=== PATIENT | female | born 1985 | race African-American/Black ===

== ENCOUNTER 2017-07-18 10:16 | Outpatient (CLI) | payer BC, MEDICAID ==
[2017-07-18 10:58] LABS: APPEARANCE,URINE CLEAR; BILIRUBIN,URINE NEGATIVE (NEGATIVE); COLOR,URINE YELLOW; GLUCOSE, URINE NEGATIVE (NEGATIVE); KETONES,URINE NEGATIVE (NEGATIVE); LEUKOCYTE ESTERASE,URINE NEGATIVE (NEGATIVE); NITRITE,URINE NEGATIVE (NEGATIVE); PROTEIN,URINE NEGATIVE (NEGATIVE); UROBILINOGEN,URINE NEGATIVE mg/dL (<2.0)
[2017-07-18 11:16] LABS: URINE AMPHETAMINES SCREEN NEGATIVE; URINE BARBITURATES SCREEN NEGATIVE; URINE BENZODIAZEPINES SCREEN NEGATIVE; URINE COCAINE SCREEN NEGATIVE; URINE MARIJUANA (THC) SCREEN NEGATIVE; URINE METHADONE SCREEN NEGATIVE; URINE PHENCYCLIDINE SCREEN NEGATIVE
[2017-07-18 11:23] LABS: UR PRO/CREAT RATIO RESULT 0.1 mg/mg (0.0-0.2); URINE CREATININE 92.1 mg/dL (16-327); URINE PROTEIN 10.7 mg/dL (<12)
[2017-07-18 11:46] LABS: ABSOLUTE LYMPHOCYTES (AUTO) 1.4 10^3/uL (0.5-4.7); ABSOLUTE MONOCYTES (AUTO) 0.4 10^3/uL (0.1-1.4); ABSOLUTE NEUT (AUTO) 4.3 10^3/uL (1.7-8.2); BASOPHILS % (AUTO) 0.1 % (0-2); EOSINOPHILS % (AUTO) 0.8 % (0-6); HEMATOCRIT 35.9 % (36.0-47.0); HEMOGLOBIN 12.1 g/dL (12.0-15.5); LYMPHOCYTES % (AUTO) 22.1 % (13-45); MEAN CORPUSCULAR HEMOGLOBIN 26.4 pg (27.0-33.4); MEAN CORPUSCULAR HGB CONC 33.9 g/dL (32.0-36.0); MEAN CORPUSCULAR VOLUME 78 fl (80-97); MONOCYTES % (AUTO) 6.1 % (3-13); PLATELET COUNT 160 10^3/uL (150-450); RED CELL DISTRIBUTION WIDTH 14.2 % (11.5-14.0); SEGMENTED NEUTROPHILS % (AUTO) 70.9 % (42-78); TOTAL CELLS COUNTED % (AUTO) 100 %; WHITE BLOOD COUNT 6.1 10^3/uL (4.0-10.5)
[2017-07-18 12:06] LABS: ALANINE AMINOTRANSFERASE 27 U/L (9-52); ALBUMIN 3.1 g/dL (3.5-5.0); ALKALINE PHOSPHATASE 124 U/L (38-126); ANION GAP 9 (5-19); ASPARTATE AMINO TRANSFERASE 16 U/L (14-36); BILIRUBIN,DIRECT 0.3 mg/dL (0.0-0.4); BILIRUBIN,TOTAL 0.3 mg/dL (0.2-1.3); BLOOD UREA NITROGEN 4 mg/dL (7-20); CALCIUM 9.4 mg/dL (8.4-10.2); CARBON DIOXIDE 21 mmol/L (22-30); CHLORIDE 108 mmol/L (98-107); GLUCOSE 105 mg/dL (75-110); LDH 303 U/L (313-618); SODIUM 137.9 mmol/L (137-145); TOTAL PROTEIN 5.8 g/dL (6.3-8.2); URIC ACID 4.5 mg/dL (2.5-6.2)
--- NOTE | 2017-07-18 12:28 | Non Stress Test Report ---
Non Stress Test Datetime Report Generated by CPN: 07/18/2017 12:28 DEMOGRAPHIC Test Number: 1 EGA NST: 35.0 INDICATION Indication for Study: Ordered by Provider MONITORING Monitor Explained: Monitor Explained; Test Explained; Patient Verbalized Understanding Time on Monitor: 07/18/2017 10:39 Time off Monitor: 07/18/2017 12:23 NST Duration: 104 NST INTERVENTIONS NST Interventions: PO Hydration; Reposition Patient BABY A: [id number] BABY A Movement : Present Contraction Frequency : 0 FHR Baseline : 140 Accelerations : 15X15 Decelerations : None Variability : Moderate 6-25bpm NST Review: Meets Criteria for Reactive NST NST Review and Verified By : JAYY GARRISON RN NST Results: Reactive NST REPORT Report Trigger: Send Report
== END 2017-07-18 12:27 | disposition home or self-care (01) ==
LOC: LC 10:16
PROVIDERS: ATTEND Student in an Organized Health Care Education/Training Program
PROC: 4A1HXCZ Monitoring of Products of Conception, Cardiac Rate, External Approach (ICD-10-PCS; principal; 2017-07-18)
DX: O14.93 Unspecified pre-eclampsia, third trimester (principal); Z3A.35 35 weeks gestation of pregnancy
CPT/HCPCS: 36415; 59025; 80053; 80307; 81001; 82570; 83615; 84156; 84550; 85025

== ENCOUNTER 2017-07-23 19:20 | Outpatient (CLI) | payer BC, MEDICAID ==
[2017-07-23 20:18] LABS: APPEARANCE,URINE CLEAR; BILIRUBIN,URINE NEGATIVE (NEGATIVE); COLOR,URINE YELLOW; GLUCOSE, URINE NEGATIVE (NEGATIVE); KETONES,URINE NEGATIVE (NEGATIVE); LEUKOCYTE ESTERASE,URINE NEGATIVE (NEGATIVE); NITRITE,URINE NEGATIVE (NEGATIVE); PROTEIN,URINE NEGATIVE (NEGATIVE); URINE SPECIFIC GRAVITY 1.012; UROBILINOGEN,URINE NEGATIVE mg/dL (<2.0)
[2017-07-23 20:21] LABS: ABSOLUTE BASOPHILS # (AUTO) 0.1 10^3/uL (0.0-0.2); ABSOLUTE LYMPHOCYTES (AUTO) 2.3 10^3/uL (0.5-4.7); ABSOLUTE MONOCYTES (AUTO) 0.7 10^3/uL (0.1-1.4); ABSOLUTE NEUT (AUTO) 5.8 10^3/uL (1.7-8.2); BASOPHILS % (AUTO) 0.6 % (0-2); EOSINOPHILS % (AUTO) 0.6 % (0-6); HEMATOCRIT 36.5 % (36.0-47.0); HEMOGLOBIN 12.2 g/dL (12.0-15.5); MEAN CORPUSCULAR HGB CONC 33.3 g/dL (32.0-36.0); MEAN CORPUSCULAR VOLUME 78 fl (80-97); MONOCYTES % (AUTO) 7.7 % (3-13); PLATELET COUNT 169 10^3/uL (150-450); RED BLOOD COUNT 4.68 10^6/uL (3.72-5.28); RED CELL DISTRIBUTION WIDTH 14.2 % (11.5-14.0); SEGMENTED NEUTROPHILS % (AUTO) 65.1 % (42-78); TOTAL CELLS COUNTED % (AUTO) 100 %; WHITE BLOOD COUNT 8.9 10^3/uL (4.0-10.5)
[2017-07-23 20:30] LABS: ALANINE AMINOTRANSFERASE 32 U/L (9-52); ALBUMIN 3.5 g/dL (3.5-5.0); ALKALINE PHOSPHATASE 132 U/L (38-126); ANION GAP 8 (5-19); ASPARTATE AMINO TRANSFERASE 19 U/L (14-36); BILIRUBIN,DIRECT 0.3 mg/dL (0.0-0.4); BILIRUBIN,TOTAL 0.3 mg/dL (0.2-1.3); BLOOD UREA NITROGEN 9 mg/dL (7-20); CALCIUM 9.6 mg/dL (8.4-10.2); CARBON DIOXIDE 20 mmol/L (22-30); CHLORIDE 107 mmol/L (98-107); GLUCOSE 67 mg/dL (75-110); LDH 379 U/L (313-618); TOTAL PROTEIN 6.4 g/dL (6.3-8.2); URIC ACID 4.4 mg/dL (2.5-6.2)
[2017-07-23 20:37] LABS: UR PRO/CREAT RATIO RESULT 0.1 mg/mg (0.0-0.2); URINE AMPHETAMINES SCREEN NEGATIVE; URINE BARBITURATES SCREEN NEGATIVE; URINE BENZODIAZEPINES SCREEN NEGATIVE; URINE COCAINE SCREEN NEGATIVE; URINE CREATININE 93.5 mg/dL (16-327); URINE MARIJUANA (THC) SCREEN NEGATIVE; URINE METHADONE SCREEN NEGATIVE; URINE PHENCYCLIDINE SCREEN NEGATIVE; URINE PROTEIN 11.6 mg/dL (<12)
== END 2017-07-23 22:03 | disposition home or self-care (01) ==
LOC: LC 19:20
PROVIDERS: ATTEND Student in an Organized Health Care Education/Training Program
PROC: 4A1HXCZ Monitoring of Products of Conception, Cardiac Rate, External Approach (ICD-10-PCS; principal; 2017-07-23)
DX: O13.3 Gestational [pregnancy-induced] hypertension without significant proteinuria, third trimester (principal); Z3A.35 35 weeks gestation of pregnancy
CPT/HCPCS: 36415; 80053; 80307; 81001; 82570; 83615; 84156; 84550; 85025

== ENCOUNTER 2017-07-25 10:37 | Outpatient (CLI) | payer BC, MEDICAID ==
--- NOTE | 2017-07-25 10:42 | Non Stress Test Report ---
Non Stress Test Datetime Report Generated by CPN: 07/25/2017 10:41 DEMOGRAPHIC Test Number: 2 EGA NST: 35.5 INDICATION Indication for Study: Ordered by Provider; Other Indication for Study (NST) Other: LC URINE RESULTS Urine Protein, NST: Negative Urine Ketones - NST: Negative Urine Glucose - NST: Negative Urine Blood - NST: Negative MONITORING Monitor Explained: Monitor Explained; Test Explained; Patient Verbalized Understanding Time on Monitor: 07/23/2017 20:49 Time off Monitor: 07/23/2017 21:50 NST Duration: 61 NST INTERVENTIONS NST Interventions: PO Hydration; Meal Given; Reposition Patient Physician Notified NST: Dr. Box BABY A: [id number] BABY A Movement : Present Contraction Frequency : Occ FHR Baseline : 145 Accelerations : 15X15 Decelerations : None Variability : Moderate 6-25bpm NST Review: Meets Criteria for Reactive NST NST Review and Verified By : MARIE Sorensen NST Results: Reactive NST REPORT Report Trigger: Send Report
[2017-07-25 11:37] LABS: APPEARANCE,URINE CLEAR; BILIRUBIN,URINE NEGATIVE (NEGATIVE); COLOR,URINE YELLOW; GLUCOSE, URINE NEGATIVE (NEGATIVE); KETONES,URINE NEGATIVE (NEGATIVE); LEUKOCYTE ESTERASE,URINE TRACE (NEGATIVE); NITRITE,URINE NEGATIVE (NEGATIVE); PROTEIN,URINE NEGATIVE (NEGATIVE); URINE SPECIFIC GRAVITY 1.011; UROBILINOGEN,URINE NEGATIVE mg/dL (<2.0)
[2017-07-25 11:46] LABS: ABSOLUTE LYMPHOCYTES (AUTO) 1.6 10^3/uL (0.5-4.7); ABSOLUTE MONOCYTES (AUTO) 0.5 10^3/uL (0.1-1.4); ABSOLUTE NEUT (AUTO) 5.3 10^3/uL (1.7-8.2); BASOPHILS % (AUTO) 0.2 % (0-2); EOSINOPHILS % (AUTO) 0.6 % (0-6); HEMOGLOBIN 12.7 g/dL (12.0-15.5); LYMPHOCYTES % (AUTO) 21.5 % (13-45); MEAN CORPUSCULAR HEMOGLOBIN 26.2 pg (27.0-33.4); MEAN CORPUSCULAR HGB CONC 33.5 g/dL (32.0-36.0); MEAN CORPUSCULAR VOLUME 78 fl (80-97); MONOCYTES % (AUTO) 6.6 % (3-13); PLATELET COUNT 170 10^3/uL (150-450); RED BLOOD COUNT 4.86 10^6/uL (3.72-5.28); RED CELL DISTRIBUTION WIDTH 14.5 % (11.5-14.0); SEGMENTED NEUTROPHILS % (AUTO) 71.1 % (42-78); TOTAL CELLS COUNTED % (AUTO) 100 %; WHITE BLOOD COUNT 7.4 10^3/uL (4.0-10.5)
[2017-07-25] MEDS ORDERED: ACETAMINOPHEN 325 MG TABLET PO ONE (11:52)
[2017-07-25 12:02] LABS: URINE AMPHETAMINES SCREEN NEGATIVE; URINE BARBITURATES SCREEN NEGATIVE; URINE BENZODIAZEPINES SCREEN NEGATIVE; URINE COCAINE SCREEN NEGATIVE; URINE MARIJUANA (THC) SCREEN NEGATIVE; URINE METHADONE SCREEN NEGATIVE; URINE PHENCYCLIDINE SCREEN NEGATIVE
[2017-07-25] MEDS ORDERED: ACETAMINOPHEN 325 MG TABLET ONE (12:08)
[2017-07-25 12:09] LABS: ALANINE AMINOTRANSFERASE 23 U/L (9-52); ALBUMIN 3.1 g/dL (3.5-5.0); ALKALINE PHOSPHATASE 124 U/L (38-126); ANION GAP 6 (5-19); ASPARTATE AMINO TRANSFERASE 17 U/L (14-36); BILIRUBIN,DIRECT 0.2 mg/dL (0.0-0.4); BILIRUBIN,TOTAL 0.2 mg/dL (0.2-1.3); BLOOD UREA NITROGEN 6 mg/dL (7-20); CALCIUM 9.4 mg/dL (8.4-10.2); CARBON DIOXIDE 22 mmol/L (22-30); CHLORIDE 108 mmol/L (98-107); GLUCOSE 70 mg/dL (75-110); LDH 325 U/L (313-618); POTASSIUM 4.2 mmol/L (3.6-5.0); SODIUM 135.7 mmol/L (137-145); TOTAL PROTEIN 5.9 g/dL (6.3-8.2); URIC ACID 4.3 mg/dL (2.5-6.2)
[2017-07-25 12:14] LABS: UR PRO/CREAT RATIO RESULT 0.2 mg/mg (0.0-0.2); URINE CREATININE 74.9 mg/dL (16-327); URINE PROTEIN 12.2 mg/dL (<12)
--- NOTE | 2017-07-25 13:35 | Non Stress Test Report ---
Non Stress Test Datetime Report Generated by CPN: 07/25/2017 13:35 DEMOGRAPHIC EGA NST: 36.0 INDICATION Indication for Study: Ordered by Provider Indication for Study (NST) Other: lc b/p MONITORING Monitor Explained: Monitor Explained; Test Explained; Patient Verbalized Understanding Time on Monitor: 07/25/2017 10:51 Time off Monitor: 07/25/2017 12:44 NST Duration: 113 NST INTERVENTIONS NST Interventions: PO Hydration; Reposition Patient Physician Notified NST: J. Saldana, RN BABY A Movement : Present Movement : Present Contraction Frequency : 0 FHR Baseline : 145 Accelerations : 15X15 Decelerations : None Variability : Moderate 6-25bpm NST Review: Meets Criteria for Reactive NST NST Review and Verified By : CLARENCE Oneal Results: Reactive NST REPORT Report Trigger: Send Report
== END 2017-07-25 16:31 | disposition home or self-care (01) ==
LOC: LC 10:37
PROVIDERS: ATTEND Obstetrics & Gynecology
PROC: 4A1HXCZ Monitoring of Products of Conception, Cardiac Rate, External Approach (ICD-10-PCS; principal; 2017-07-25)
DX: O14.93 Unspecified pre-eclampsia, third trimester (principal); Z3A.36 36 weeks gestation of pregnancy
CPT/HCPCS: 36415; 59025; 80053; 80307; 81001; 82570; 83615; 84156; 84550; 85025

== ENCOUNTER 2017-07-29 09:03 | Outpatient (CLI) | payer BC, MEDICAID ==
--- NOTE | 2017-07-29 10:06 | Non Stress Test Report ---
Non Stress Test Datetime Report Generated by CPN: 07/29/2017 10:06 DEMOGRAPHIC EGA NST: 36.4 INDICATION Indication for Study: Gestational Hypertension MONITORING Monitor Explained: Monitor Explained; Test Explained; Patient Verbalized Understanding Time on Monitor: 07/29/2017 09:26 Time off Monitor: 07/29/2017 10:04 NST Duration: 38 NST INTERVENTIONS NST Interventions: PO Hydration Physician Notified NST: C Chavez CNM BABY A: [id number] BABY A Movement : Present Contraction Frequency : Irr FHR Baseline : 145 Accelerations : 15X15 Decelerations : None Variability : Moderate 6-25bpm NST Review: Meets Criteria for Reactive NST NST Review and Verified By : Alisha Bellavagalen RNC NST Results: Reactive NST REPORT Report Trigger: Send Report
[2017-07-29 10:10] LABS: APPEARANCE,URINE SLIGHTLY-CLOUDY; BILIRUBIN,URINE NEGATIVE (NEGATIVE); COLOR,URINE YELLOW; GLUCOSE, URINE NEGATIVE (NEGATIVE); KETONES,URINE NEGATIVE (NEGATIVE); LEUKOCYTE ESTERASE,URINE NEGATIVE (NEGATIVE); NITRITE,URINE NEGATIVE (NEGATIVE); PROTEIN,URINE NEGATIVE (NEGATIVE); URINE SPECIFIC GRAVITY 1.012; UROBILINOGEN,URINE NEGATIVE mg/dL (<2.0)
[2017-07-29 10:17] LABS: ABSOLUTE LYMPHOCYTES (AUTO) 1.3 10^3/uL (0.5-4.7); ABSOLUTE MONOCYTES (AUTO) 0.5 10^3/uL (0.1-1.4); ABSOLUTE NEUT (AUTO) 4.4 10^3/uL (1.7-8.2); BASOPHILS % (AUTO) 0.2 % (0-2); EOSINOPHILS % (AUTO) 0.6 % (0-6); HEMATOCRIT 37.6 % (36.0-47.0); HEMOGLOBIN 12.4 g/dL (12.0-15.5); LYMPHOCYTES % (AUTO) 20.4 % (13-45); MEAN CORPUSCULAR HEMOGLOBIN 26.1 pg (27.0-33.4); MEAN CORPUSCULAR VOLUME 79 fl (80-97); MONOCYTES % (AUTO) 7.9 % (3-13); PLATELET COUNT 156 10^3/uL (150-450); RED BLOOD COUNT 4.76 10^6/uL (3.72-5.28); RED CELL DISTRIBUTION WIDTH 14.5 % (11.5-14.0); SEGMENTED NEUTROPHILS % (AUTO) 70.9 % (42-78); TOTAL CELLS COUNTED % (AUTO) 100 %; WHITE BLOOD COUNT 6.3 10^3/uL (4.0-10.5)
[2017-07-29 10:30] LABS: URINE AMPHETAMINES SCREEN NEGATIVE; URINE BARBITURATES SCREEN NEGATIVE; URINE BENZODIAZEPINES SCREEN NEGATIVE; URINE COCAINE SCREEN NEGATIVE; URINE MARIJUANA (THC) SCREEN NEGATIVE; URINE METHADONE SCREEN NEGATIVE; URINE PHENCYCLIDINE SCREEN NEGATIVE
[2017-07-29 10:36] LABS: UR PRO/CREAT RATIO RESULT 0.1 mg/mg (0.0-0.2); URINE CREATININE 129.1 mg/dL (16-327)
[2017-07-29 10:42] LABS: ALANINE AMINOTRANSFERASE 30 U/L (9-52); ALKALINE PHOSPHATASE 118 U/L (38-126); ANION GAP 6 (5-19); ASPARTATE AMINO TRANSFERASE 16 U/L (14-36); BILIRUBIN,DIRECT 0.2 mg/dL (0.0-0.4); BILIRUBIN,TOTAL 0.2 mg/dL (0.2-1.3); BLOOD UREA NITROGEN 6 mg/dL (7-20); CALCIUM 9.7 mg/dL (8.4-10.2); CARBON DIOXIDE 21 mmol/L (22-30); CHLORIDE 109 mmol/L (98-107); GLUCOSE 79 mg/dL (75-110); LDH 322 U/L (313-618); SODIUM 136.3 mmol/L (137-145); TOTAL PROTEIN 5.7 g/dL (6.3-8.2); URIC ACID 4.3 mg/dL (2.5-6.2)
== END 2017-07-29 11:11 | disposition home or self-care (01) ==
LOC: LC 09:03
PROVIDERS: ATTEND Obstetrics & Gynecology
PROC: 4A1HXCZ Monitoring of Products of Conception, Cardiac Rate, External Approach (ICD-10-PCS; principal; 2017-07-29)
DX: O13.3 Gestational [pregnancy-induced] hypertension without significant proteinuria, third trimester (principal); Z3A.36 36 weeks gestation of pregnancy
CPT/HCPCS: 36415; 59025; 80053; 80307; 81001; 82570; 83615; 84156; 84550; 85025

== ENCOUNTER 2017-08-01 18:07 | Inpatient (IN) | payer BC, MEDICAID ==
[2017-08-01] MEDS ORDERED: RINGERS SOLUTION,LACTATED 1,000 ML IV PRN (18:39)
[2017-08-01] MEDS ORDERED: DINOPROSTONE 10 MG VAGINAL INSERT.SR PV PRN (18:39)
[2017-08-01] MEDS ORDERED: RINGERS SOLUTION,LACTATED 300 ML IV ONE (18:39)
[2017-08-01] MEDS ORDERED: DINOPROSTONE 10 MG VAGINAL INSERT.SR ONE (19:03)
[2017-08-01 19:05] LABS: APPEARANCE,URINE SLIGHTLY-CLOUDY; BILIRUBIN,URINE NEGATIVE (NEGATIVE); CALCIUM OXALATE CRYSTALS,URINE MANY /HPF; COLOR,URINE YELLOW; GLUCOSE, URINE NEGATIVE (NEGATIVE); KETONES,URINE NEGATIVE (NEGATIVE); LEUKOCYTE ESTERASE,URINE NEGATIVE (NEGATIVE); NITRITE,URINE NEGATIVE (NEGATIVE); PROTEIN,URINE 30 mg/dL (NEGATIVE); UROBILINOGEN,URINE NEGATIVE mg/dL (<2.0)
[2017-08-01 19:13] LABS: URINE AMPHETAMINES SCREEN NEGATIVE; URINE BARBITURATES SCREEN NEGATIVE; URINE BENZODIAZEPINES SCREEN NEGATIVE; URINE COCAINE SCREEN NEGATIVE; URINE MARIJUANA (THC) SCREEN NEGATIVE; URINE METHADONE SCREEN NEGATIVE; URINE PHENCYCLIDINE SCREEN NEGATIVE
[2017-08-01 19:16] LABS: ABSOLUTE EOSINOPHILS # (AUTO) 0.1 10^3/uL (0.0-0.6); ABSOLUTE MONOCYTES (AUTO) 0.6 10^3/uL (0.1-1.4); ABSOLUTE NEUT (AUTO) 6.2 10^3/uL (1.7-8.2); BASOPHILS % (AUTO) 0.4 % (0-2); EOSINOPHILS % (AUTO) 0.6 % (0-6); HEMATOCRIT 37.5 % (36.0-47.0); HEMOGLOBIN 12.3 g/dL (12.0-15.5); LYMPHOCYTES % (AUTO) 22.4 % (13-45); MEAN CORPUSCULAR HGB CONC 32.7 g/dL (32.0-36.0); MEAN CORPUSCULAR VOLUME 79 fl (80-97); MONOCYTES % (AUTO) 6.7 % (3-13); PLATELET COUNT 174 10^3/uL (150-450); RED BLOOD COUNT 4.73 10^6/uL (3.72-5.28); RED CELL DISTRIBUTION WIDTH 14.5 % (11.5-14.0); SEGMENTED NEUTROPHILS % (AUTO) 69.9 % (42-78); TOTAL CELLS COUNTED % (AUTO) 100 %; WHITE BLOOD COUNT 8.9 10^3/uL (4.0-10.5)
[2017-08-01 19:59] LABS: ALANINE AMINOTRANSFERASE 22 U/L (9-52); ALBUMIN 3.3 g/dL (3.5-5.0); ALKALINE PHOSPHATASE 116 U/L (38-126); ANION GAP 8 (5-19); ASPARTATE AMINO TRANSFERASE 16 U/L (14-36); BILIRUBIN,DIRECT 0.2 mg/dL (0.0-0.4); BILIRUBIN,TOTAL 0.2 mg/dL (0.2-1.3); BLOOD UREA NITROGEN 10 mg/dL (7-20); CALCIUM 9.9 mg/dL (8.4-10.2); CARBON DIOXIDE 21 mmol/L (22-30); CHLORIDE 108 mmol/L (98-107); GLUCOSE 97 mg/dL (75-110); LDH 349 U/L (313-618); POTASSIUM 4.1 mmol/L (3.6-5.0); SODIUM 136.9 mmol/L (137-145); TOTAL PROTEIN 5.9 g/dL (6.3-8.2); URIC ACID 4.3 mg/dL (2.5-6.2)
--- NOTE | 2017-08-02 07:02 | Admission Physical ---
Datetime Report Generated by CPN: 08/02/2017 07:02 CURRENT ADMISSION Chief Complaint: Scheduled Induction of Labor Indication for Induction: Chronic Primary/Essential HTN; Maternal Diabetes Indication for Induction: Term, Intrauterine ; No Active Labor; Intact Membranes Admit Plan: Admit to Unit; Initiate Labor Induction Protocol ALLERGIES Medication Allergies: No Medication Allergies: No Known Allergies (07/29/2017) Medication Allergies: No Known Allergies (07/23/2017) Medication Allergies: No Known Allergies (04/01/2013) Latex: No Latex Allergies OBSTETRICAL HISTORY EDC: 08/22/2017 00:00 : 3 Para: 2 Term: 2 Ectopic: 0 Livin Cesareans: 0 VBACs: 0 Multiple Births: 0 Gestational Diabetes: Yes Rh Sensitization: No Incompetent Cervix: No JUDIT: No Infertility: No ART Treatment: No Uterine Anomaly: No IUGR: No Hx Previous C/S: No Macrosomia: No Hx Loss/Stillborn: No PIH: Yes Hx : No Placenta Previa/Abruption: No Depression/PP Depression: No PTL/PROM: No Post Hemorrhage: No Current Procedures: Ultrasound; NST Obstetrical History Comments: G1 2009 baby boy 39 wks G1 2017 baby boy 39.3 wks G3 current SEE RECORDS Alcohol: No Marijuana : No Cocaine: No Other Illicit Drugs: No Cigarettes: Never Smoker. [id number] MEDICAL HISTORY Diabetes: Yes Diabetes Type: Gestational Diabetes Blood Transfusion: No Pulmonary Disease (Asthma, TB): No Breast Disease: No Hypertension: Yes Manufacturing Finance Manager Surgery: No Heart Disease: No Hosp/Surgery: No Autoimmune Disorder: No Anesthetic Complications: Unknown Kidney Disease: No Abnormal Pap Smear: Yes Neuro/Epilepsy: No Psychiatric Disorders: No Other Medical Diseases: No Hepatitis/Liver Disease: No Significant Family History: No Varicosities/Phlebitis: No Trauma/Violence : No Thyroid Dysfunction: No Medical History Comments: unspecified pruritic disorder, colpo INFECTIOUS HISTORY Gonorrhea: No Genital Herpes: No Chlamydia: Yes Tuberculosis: No Syphilis: No Hepatitis: No HIV/AIDS Exposure: No Rash or Viral Illness: No HPV: No PHYSICAL EXAM General: Normal HEENT: Normal Neurologic: Normal Thyroid: Deferred Heart: Normal Lungs: Normal Breast: Deferred Back: Normal Abdomen: Normal Genitourinary Exam: Normal Extremities: Normal DTRs: Normal Pelvic Type: Adequate Vital Signs: Reviewed Details Vital Signs: intermittent mild range BPs VAGINAL EXAM Dilatation: 1 Effacement: 50 Station: -1 Contraction Comments: rare FETUS A EGA: 37.0 Monitoring: External US FHR- Baseline: 135 Variability: Moderate 6-25bpm Accelerations: 15X15 Decelerations: None FHR Category: Category I Presentation: Vertex Admit Comment: 32yo at 37+0ega presents for scheduled IOL due to CHTN (just started on procardia), H/o PreE, GDM. GBS positive. Will give PCN for GBS positive. Place cervidil upon arrival and anticipate . Pelvis proven to 7#8oz. Anticpate . PLANS FOR LABOR AND DELIVERY Labor and Delivery: None Pain Management: Medications Feeding Preference: Breast Benefit of Breast Feed Discussed: Yes Circumcision: N/A INFORMED CONSENT Informed Consent Obtained: Vaginal Delivery; Induction of Labor; Risks, Benefits and Alternatives Discussed Signature: with User ID: [email or web address]
[2017-08-02] MEDS ORDERED: PENICILLIN G-K 5 MILLION UNIT VIAL ONE ×2 (08:43→14:44)
[2017-08-02] MEDS ORDERED: OXYTOCIN/NORMAL SALINE 0 UNIT/0 ML RTUINJ ONE (10:44)
[2017-08-02] MEDS ORDERED: OXYTOCIN/NORMAL SALINE 20 UNIT/1,000 ML RTUINJ IV PRN ×2 (11:18→16:40)
--- NOTE | 2017-08-02 13:06 | L&D Progress Notes ---
PROGRESS NOTES Datetime Report Generated by CPN: 08/02/2017 13:06 PROGRESS NOTE Impression: Normal Progression of Labor; Reassuring Heart Rate Procedures: Artificial ROM; Sterile Vag Exam Plan: Continue Present Management; Induction Informed Consent Obtained: Vaginal Delivery Informed Consent Obtained: Vaginal Delivery; Induction of Labor; Risks, Benefits and Alternatives Discussed Vital Signs : Reviewed Comment: pt breathing with ctx, doing well, denies need for pain meds Pit per protocol Pcn s/p 2 doses AROM, clear fluid Anticpate VAGINAL EXAM Dilatation: 1 Effacement: 50 Station: -1 Contractions: rare FETUS A FHR - Baseline: 145 Monitoring: External US Variability: Moderate 6-25bpm Accelerations: 15X15 Decelerations: None FHR Category: Category II Presentation: Vertex SIGNATURE SIGNATURE: [id number] SIGNATURE: [id number] SIGNATURE: [id number] SIGNATURE: ,[id number] SIGNATURE: ,[id number] SIGNATURE: [id number] Assignment: Nghia Fernández MD Signature: with User ID: [email or web address] : with User ID: [email or web address]
[2017-08-02] MEDS ORDERED: MISOPROSTOL 0.2 MG TABLET ONE (13:44)
[2017-08-02] MEDS ORDERED: LIDOCAINE 1% INJ-PF (10 MG/ML) 30 ML SDV ONE (13:44)
[2017-08-02] MEDS ORDERED: OXYTOCIN/NORMAL SALINE 20 UNIT/1,000 ML RTUINJ ONE (13:45)
[2017-08-02] MEDS ORDERED: PROMETHAZINE HCL INJ 25 MG/1 ML VIAL ONE (14:27)
[2017-08-02] MEDS ORDERED: NALBUPHINE HCL INJ 10 MG/1 ML AMPULE ONE (14:28)
[2017-08-02] MEDS ORDERED: NALBUPHINE HCL INJ 10 MG/1 ML AMPULE INJ ONE (15:00)
[2017-08-02] MEDS ORDERED: PROMETHAZINE HCL INJ 25 MG/1 ML VIAL IV ONE (15:00)
[2017-08-02] MEDS ORDERED: BENZOCAINE/MENTHOL AEROSOL SPRAY 56 ML TOP PRN (16:40)
[2017-08-02] MEDS ORDERED: MEASLES,MUMPS&RUBELLA VACC/PF 0.5 ML VIAL SUBCUT PRN (16:40)
[2017-08-02] MEDS ORDERED: ACETAMINOPHEN WITH CODEINE #3 TABLET PO PRN ×2 (16:40)
[2017-08-02] MEDS ORDERED: DIPH/PERTUSS(ACELL)/TETANUS VAC/PF 0.5 ML SYR (>=10YO) IM PRN (16:40)
[2017-08-02] MEDS ORDERED: ZOLPIDEM TARTRATE 5 MG TABLET PO PRN (16:40)
[2017-08-02] MEDS ORDERED: DIBUCAINE 1% OINTMENT 28 GM TP PRN (16:40)
--- NOTE | 2017-08-02 16:45 | Warning Signs in Babies ---
VOD Warning Signs Datetime Report Generated by [facility]: 08/02/2017 16:45 VOD#608 -Warning Signs in Babies: Viewed with Parent(s)/Family (07/18/2017 10:21:Cici Damon RN)
--- NOTE | 2017-08-02 16:46 | Delivery Summary ---
Del Sum A-C Datetime Report Generated by CPN: 08/02/2017 16:46 DELIVERY PERSONNEL DELIVERY PERSONNEL: [id number] Delivery Doctor:: Deborah Higgins CNM Nurse Business Systems Consultant Certified:: Deborah Higgins CNM Labor and Delivery Nurse:: Cici Damon RN Surgical First Assistant:: MARIE Shah Nursery Nurse:: Mar Live RN Student Observers:: Sayra Greco Tech/WOOD STAINER: Susan Tracy, ST MATERNAL INFORMATION Delivery Anesthesia: None Medications During Delivery: nubain 1 hour before Medications After Delivery: Pitocin Bolus-Please Comment; Pitocin Drip 20 Units/1000ml NSS Estimated Blood Loss (ml): 100 Maternal Complications: Other Other Maternal Complications: 37 weeks recentnubain exposure Provider Comments: of viable female , head, shoulder, and body delivered without difficulty, infant with spontaneous cry and respirations, to maternal abdomen for skin to skin, cord clamped X2 and cut free after 2 min delay. Spontaneous delivery of placenta, via lindquist mechanism, appears intact 3 VC, vagina and perineum inspected, no lacerations noted. hemostasis acheived with external fundal massage and IV pitocin. LABOR SUMMARY EDC: 08/22/2017 00:00 No. Babies in Womb: 1 Attempted: No Labor Anesthesia: IV Sedation LABOR INFORMATION Reason for Induction: Gestational Hypertension Onset of Labor: 08/02/2017 12:00 Complete Dilatation: 08/02/2017 15:33 Cervical Ripening Agents: Cervidil Oxytocin: Induction Group B Beta Strep: Positive Antibiotics # of Doses: 2 Antibiotics Time of Last Dose: 1435 Name of Antibiotic Given: penicillin Steroids Given: None Reason Steroids Not Administered: Not Applicable MEMBRANES Membranes Rupture Method: Artificial Rupture of Membranes: 08/02/2017 13:01 Length of Rupture (hr): 2.68 Amniotic Fluid Color: Clear Amniotic Fluid Amount: Moderate Amniotic Fluid Odor: Normal STAGES OF LABOR Stage 1 hr: 3 Stage 1 min: 33 Stage 2 hr: 0 Stage 2 min: 9 Stage 3 hr: 0 Stage 3 min: 3 Total Time in Labor hr: 3 Total Time in Labor min: 45 VAGINAL DELIVERY Episiotomy: None Laceration #1: None Laceration Extension #1: N/A Laceration Repair: Not Applicable Sponge Count Correct: N/A Sharps Count Correct: N/A BABY A INFORMATION Delivery Date/Time: 08/02/2017 15:42 Method of Delivery: Vaginal Born in Route : No : N/A Forceps: N/A Vacuum Extraction: N/A Shoulder Dystocia : No PRESENTATION/POSITION BABY A Presentation: Cephalic Cephalic Presentation: Vertex Vertex Position: Left Occipital Anterior Breech Presentation: N/A PLACENTA INFORMATION BABY A Placenta Delivery Time : 08/02/2017 15:45 Placenta Method of Delivery: Spontaneous Placenta Status: Delivered SCORES BABY A Heart Rate 1 min: >100 bpm Resp Effort 1 min: Slow, Irregular Reflex Irritability 1 min: Cough or Sneeze or Pulls Away Muscle Tone 1 min: Active Motion Color 1 min: Blue/Pale Resuscitation Effort 1 min: Tactile Stimulation SCORE 1 MIN: 7 Heart Rate 5 min: >100 bpm Resp Effort 5 min: Good Cry Reflex Irritability 5 min: Cough or Sneeze or Pulls Away Muscle Tone 5 min: Active Motion Color 5 min: Body [place], Extremities Blue Resuscitation Effort 5 min: Tactile Stimulation SCORE 5 MIN: 9 INFORMATION BABY A Gestational Age at Delivery: 37.1 Gestational Status: Early Term- 37- 38.6 Weeks Infant Outcome : Liveborn Condition : Stable Sex: Female IDENTIFICATION BABY A Infant Verification Date/Time: 08/02/2017 16:13 ID Band Number: [id number] Mother's Name Verified: Yes Infant RN Verifying : hi damon rn Additional Verifying Personnel: karen cabrales rn WEIGHT/LENGTH BABY A Infant Birthweight (gm): 2530 Weight (lb): 5 Infant Weight (oz): 9 Infant Length (in): 17.75 Length (cm): 45.09 CORD INFORMATION BABY A No. Cord Vessels: 3 Nuchal Cord : N/A Cord Blood Taken: Yes-For Storage (Mom's Blood type +) Infant Suction: None ASSESSMENT BABY A Skin to Skin: Yes (Annotations: pt still sleepy from nubain. falling asleep holding baby. baby now resting skin to skin with father, pt sleeping) BABY B INFORMATION : N/A SIGNATURES Assignment: Nghia Fernández MD Signature: with User ID: [email or web address] : with User ID: [email or web address]
[2017-08-02] MEDS: DOCUSATE SODIUM 100 MG CAPSULE PO SCH (18:29)
[2017-08-02] MEDS: FERROUS SULFATE 325 MG TABLET PO SCH (18:29)
[2017-08-02] MEDS: IBUPROFEN 800 MG TABLET PO SCH (22:49)
[2017-08-03] MEDS: IBUPROFEN 800 MG TABLET PO SCH ×3 (06:26→23:27)
[2017-08-03 07:33] LABS: HEMATOCRIT 37.7 % (36.0-47.0); HEMOGLOBIN 12.3 g/dL (12.0-15.5); MEAN CORPUSCULAR HEMOGLOBIN 25.9 pg (27.0-33.4); MEAN CORPUSCULAR HGB CONC 32.7 g/dL (32.0-36.0); MEAN CORPUSCULAR VOLUME 79 fl (80-97); PLATELET COUNT 172 10^3/uL (150-450); RED BLOOD COUNT 4.76 10^6/uL (3.72-5.28); RED CELL DISTRIBUTION WIDTH 14.3 % (11.5-14.0); WHITE BLOOD COUNT 11.3 10^3/uL (4.0-10.5)
--- NOTE | 2017-08-03 08:52 | PDOC PROGRESS REPORT ---
Subjective-OB Progress Note for:: 08/03/17 Subjective: day #1 s/p Pt doing well, pain well controlled, voiding without difficulty, lochia is stable, bonding with baby well. Physical Exam (OB) Vital Signs: Temp Pulse Resp BP Pulse Ox 97.8 F 77 18 141/78 H 100 08/03/17 08:30 08/03/17 08:30 08/03/17 08:30 08/03/17 08:30 08/03/17 08:30 Intake & Output 08/02/17 08/03/17 08/04/17 06:59 06:59 07:59 Intake Total 1800 Balance 1800 Weight 114.6 kg - PIH/Pre-Eclampsia Clonus: Negative - Lochia Lochia Amount: Scant < 10 ml Lochia Color: Rubra/Red - Abdomen Description: Soft, Flat Hernia Present: No Fundal Description: Firm, Midline Fundal Height: u/3 - u/4 Objective-Diagnostic Laboratory: 08/03/17 07:17 08/01/17 19:04 08/03/17 07:17 WBC 11.3 H RBC 4.76 Hgb 12.3 Hct 37.7 MCV 79 L MCH 25.9 L MCHC 32.7 RDW 14.3 H Plt Count 172 Assessment and Plan(PN) - Assessment and Plan (1) Vaginal delivery Is this a current diagnosis for this admission?: Yes Plan: routine pp care (2) Gestational diabetes Qualifiers: Gestational diabetes mellitus control: diet-controlled Is this a current diagnosis for this admission?: Yes Plan: yearly follow up pp follow up (3) Gestational HTN Qualifiers: Trimester: third trimester Qualified Code(s): O13.3 - Gestational [ -induced] hypertension without significant proteinuria, third trimester Is this a current diagnosis for this admission?: Yes Plan: monitor bp - Time Spent with Patient Time with patient: Less than 15 minutes Critical Time spent with patient: Less than 15 minutes Medications reviewed and adjusted accordingly: Yes - Disposition Anticipated Discharge: Home Within: within 24 hours
[2017-08-03] MEDS: FERROUS SULFATE 325 MG TABLET PO SCH ×2 (10:53→17:24)
[2017-08-03] MEDS: SENNOSIDES/DOCUSATE 8.6-50 MG 1 EACH TABLET PO SCH (10:53)
[2017-08-03] MEDS: DOCUSATE SODIUM 100 MG CAPSULE PO SCH ×2 (10:53→17:24)
[2017-08-03] MEDS: PRENATAL VITAMIN W DHA CAPSULE PO SCH (10:53)
[2017-08-04] MEDS: IBUPROFEN 800 MG TABLET PO SCH ×2 (05:38→14:20)
--- NOTE | 2017-08-04 08:28 | PDOC PROGRESS REPORT ---
Subjective-OB Progress Note for:: 08/04/17 Subjective: Day #2, s/p Pt doing well, denies concerns, states lochia is stable, pain well controlled, voiding without difficulty. Physical Exam (OB) Vital Signs: Temp Pulse Resp BP Pulse Ox 98.7 F 77 16 137/86 H 99 08/04/17 08:14 08/04/17 08:14 08/04/17 08:14 08/04/17 08:14 08/04/17 08:14 Intake & Output 08/03/17 08/04/17 08/05/17 05:59 06:59 06:59 Intake Total Balance - PIH/Pre-Eclampsia DTR's: 1 + Clonus: Negative Headache: Absent Epigastric Pain: No Visual Changes: No - Lochia Lochia Amount: Scant < 10 ml Lochia Color: Rubra/Red - Abdomen Description: Tender, Soft Hernia Present: No Fundal Description: Firm, Midline Fundal Height: u/u - u/2 Objective-Diagnostic Laboratory: 08/03/17 07:17 08/01/17 19:04 08/03/17 07:17 WBC 11.3 H RBC 4.76 Hgb 12.3 Hct 37.7 MCV 79 L MCH 25.9 L MCHC 32.7 RDW 14.3 H Plt Count 172 Assessment and Plan(PN) - Assessment and Plan (1) Vaginal delivery Is this a current diagnosis for this admission?: Yes (2) Gestational diabetes Qualifiers: Gestational diabetes mellitus control: diet-controlled Is this a current diagnosis for this admission?: Yes (3) Gestational HTN Qualifiers: Trimester: third trimester Qualified Code(s): O13.3 - Gestational [ -induced] hypertension without significant proteinuria, third trimester Is this a current diagnosis for this admission?: Yes - Time Spent with Patient Time with patient: Less than 15 minutes Critical Time spent with patient: Less than 15 minutes Medications reviewed and adjusted accordingly: Yes - Disposition Anticipated Discharge: Home
--- NOTE | 2017-08-04 08:29 | PDOC DISCHARGE SUMMARY ---
Final Diagnosis Discharge Date: 08/04/17 - Final Diagnosis (1) Vaginal delivery Is this a current diagnosis for this admission?: Yes (2) Gestational diabetes Is this a current diagnosis for this admission?: Yes (3) Gestational HTN Is this a current diagnosis for this admission?: Yes Discharge Data - Discharge Medication Prescriptions: Docusate Sodium [Colace 100 mg Capsule] 100 mg PO BID #60 capsule Ibuprofen [Motrin 800 mg Tablet] 800 mg PO Q8 #60 tablet Home Medications: 95/Iron Fum/Folic/Dha [ + Dha Combo Pack] 1 tab PO DAILY Nifedipine [Nifedipine ER] 30 mg PO DAILY 07/25/17 Docusate Sodium [Colace 100 mg Capsule] 100 mg PO BID #60 capsule 08/04/17 Ibuprofen [Motrin 800 mg Tablet] 800 mg PO Q8 #60 tablet 08/04/17 Gestational Age: 37 Reason(s) for Admission: Induction of Labor Procedures: NST Intrapartum Procedure(s): Spontaneous Vaginal Delivery - [place] Data Baby 1 Female at 1 minute: 7 at 5 minutes: 9 Weight: 2530 kg Home with Mother: Yes Complications: No - Diagnosis Test Laboratory: Temp Pulse Resp BP Pulse Ox 98.7 F 77 16 137/86 H 99 08/04/17 08:14 08/04/17 08:14 08/04/17 08:14 08/04/17 08:14 08/04/17 08:14 08/01/17 08/01/17 08/03/17 18:31 19:04 07:17 RBC 4.73 4.76 Hgb 12.3 12.3 Hct 37.5 37.7 Urine Opiates Screen NEGATIVE - Discharge information/Instructions Discharge Activity: Activity As Tolerated, Pelvic Rest, No tub bath Discharge Diet: Regular Disposition: HOME, SELF-CARE Follow up with: [facility] in: 1, Weeks - bp check
[2017-08-04] MEDS: FERROUS SULFATE 325 MG TABLET PO SCH ×2 (09:19→17:59)
[2017-08-04] MEDS: SENNOSIDES/DOCUSATE 8.6-50 MG 1 EACH TABLET PO SCH (09:20)
[2017-08-04] MEDS: PRENATAL VITAMIN W DHA CAPSULE PO SCH (09:20)
[2017-08-04] MEDS: DOCUSATE SODIUM 100 MG CAPSULE PO SCH ×2 (09:20→17:59)
[2017-08-04 18:21] VITALS: BP 137/79
== END 2017-08-04 19:15 | disposition home or self-care (01) | DRG 774 ==
LOC: LR 18:07 → 2S 08-02 18:10
PROVIDERS: ADMIT Obstetrics & Gynecology; ATTEND Obstetrics & Gynecology
PROC: 10E0XZZ Delivery of Products of Conception, External Approach (ICD-10-PCS; principal; 2017-08-02)
DX: O24.420 Gestational diabetes mellitus in childbirth, diet controlled (principal); O10.92 Unspecified pre-existing hypertension complicating childbirth; O99.824 Streptococcus B carrier state complicating childbirth; O99.214 Obesity complicating childbirth; E66.9 Obesity, unspecified; Z68.38 Body mass index [BMI] 38.0-38.9, adult; Z3A.37 37 weeks gestation of pregnancy; Z37.0 Single live birth
CPT/HCPCS: 36415; 80053; 80307; 81001; 83615; 84550; 85025; 85027; 86850; 86900; 86901; J2300; J2540; J2550; J2590; J3490

== ENCOUNTER 2019-11-02 16:47 | Outpatient (CLI) | payer BC, MEDICAID ==
[2019-11-02 17:30] LABS: APPEARANCE,URINE CLEAR; BILIRUBIN,URINE NEGATIVE (NEGATIVE); COLOR,URINE STRAW; GLUCOSE, URINE NEGATIVE (NEGATIVE); KETONES,URINE NEGATIVE (NEGATIVE); LEUKOCYTE ESTERASE,URINE TRACE (NEGATIVE); NITRITE,URINE NEGATIVE (NEGATIVE); PROTEIN,URINE NEGATIVE (NEGATIVE); URINE SPECIFIC GRAVITY 1.003; UROBILINOGEN,URINE NEGATIVE mg/dL (<2.0)
[2019-11-02 17:31] LABS: URINE AMPHETAMINES SCREEN NEGATIVE; URINE BARBITURATES SCREEN NEGATIVE; URINE BENZODIAZEPINES SCREEN NEGATIVE; URINE COCAINE SCREEN NEGATIVE; URINE MARIJUANA (THC) SCREEN NEGATIVE; URINE METHADONE SCREEN NEGATIVE; URINE PHENCYCLIDINE SCREEN NEGATIVE
== END 2019-11-02 17:57 | disposition home or self-care (01) ==
LOC: LC 16:47
PROVIDERS: ATTEND Obstetrics & Gynecology Gynecology
DX: O11.3 Pre-existing hypertension with pre-eclampsia, third trimester (principal); O10.913 Unspecified pre-existing hypertension complicating pregnancy, third trimester; Z3A.36 36 weeks gestation of pregnancy
CPT/HCPCS: 80307; 81001

== ENCOUNTER 2019-11-08 07:26 | Inpatient (IN) | payer BC, MEDICAID ==
[2019-11-08] MEDS ORDERED: MISOPROSTOL 0.2 MG TABLET ONE (07:43)
[2019-11-08] MEDS ORDERED: OXYTOCIN 10 UNIT/ML VIAL ONE (07:43)
[2019-11-08] MEDS ORDERED: LIDOCAINE 1% INJ-PF (10 MG/ML) 30 ML SDV ONE (07:44)
[2019-11-08] MEDS ORDERED: OXYTOCIN/0.9 % SODIUM CHLORIDE 0 UNIT/0 ML RTUINJ ONE (07:44)
[2019-11-08] MEDS ORDERED: RINGERS SOLUTION,LACTATED 1,000 ML IV ONE (07:53)
[2019-11-08] MEDS ORDERED: RINGERS SOLUTION,LACTATED 1,000 ML IV PRN (07:53)
[2019-11-08] MEDS ORDERED: PENICILLIN G POTASSIUM 5,000,000 UNIT in DEXTROSE 5%-WATER 100 ML IV ONE (07:53)
--- NOTE | 2019-11-08 08:32 | Admission Physical ---
Datetime Report Generated by CPN: 11/08/2019 08:32 CURRENT ADMISSION Chief Complaint: Uterine Contractions; Suspected Ruptured Membranes Indication for Induction: Not Applicable Admit Impression : Term, Intrauterine ; Active Labor Admit Plan: Admit to Unit; Initiate Labor Protocol ALLERGIES Medication Allergies: No Medication Allergies: No Known Allergies (07/29/2017) Latex: No Latex Allergies OBSTETRICAL HISTORY EDC: 11/29/2019 00:00 : 4 Para: 3 Term: 3 : 0 SAB: 0 IAB: 0 Ectopic: 0 Livin Cesareans: 0 VBACs: 0 Multiple Births: 0 Rh Sensitization: No Incompetent Cervix: No JUDIT: No Infertility: No IUGR: No Hx Previous C/S: No Macrosomia: No Hx Loss/Stillborn: No PIH: Yes Hx : No PTL/PROM: No Current Procedures: Ultrasound; NST Obstetrical History Comments: G1 G2 G3 G4- current pre e MEDICAL HISTORY Blood Transfusion: No Pulmonary Disease (Asthma, TB): No Hypertension: Yes PHYSICAL EXAM General: Normal HEENT: Normal Neurologic: Normal Thyroid: Normal Heart: Normal Lungs: Normal Breast: Deferred Back: Normal Abdomen: Normal Genitourinary Exam: Normal Extremities: Normal DTRs: Normal Pelvic Type: Adequate Vital Signs: Reviewed VAGINAL EXAM Dilatation: 10 Effacement: 100 Station: 1 MEMBRANES Pooling: Positive Membranes: Ruptured FETUS A EGA: 37.0 Monitoring: External US FHR- Baseline: 120 Variability: Moderate 6-25bpm Decelerations: None FHR Category: Category I Presentation: Vertex Admit Comment: Anticipate delivery INFORMED CONSENT Signature: with User ID: [email or web address]
[2019-11-08] MEDS ORDERED: PROMETHAZINE HCL INJ 25 MG/1 ML VIAL IV PRN (08:41)
[2019-11-08] MEDS ORDERED: ZOLPIDEM TARTRATE 5 MG TABLET PO PRN (08:41)
[2019-11-08] MEDS ORDERED: ACETAMINOPHEN WITH CODEINE #3 TABLET PO PRN ×2 (08:41)
[2019-11-08] MEDS ORDERED: PROMETHAZINE HCL 25 MG TABLET PO PRN (08:41)
[2019-11-08] MEDS ORDERED: LABETALOL HCL 200 MG TABLET ONE (08:41)
[2019-11-08] MEDS ORDERED: DIBUCAINE 1% OINTMENT 28 GM TP PRN (08:41)
[2019-11-08] MEDS ORDERED: DIPH/PERTUSS(ACELL)/TETANUS VAC/PF 0.5 ML SYR (>=10YO) IM PRN (08:41)
[2019-11-08] MEDS ORDERED: PROMETHAZINE HCL 25 MG SUPP.RECT PR PRN (08:41)
[2019-11-08] MEDS ORDERED: GLYCERIN/WITCH HAZEL LEAF 1 EACH MED..WIPE TP PRN (08:41)
[2019-11-08] MEDS ORDERED: ACETAMINOPHEN 650 MG SUPP.RECT PR PRN (08:41)
[2019-11-08] MEDS ORDERED: OXYTOCIN/0.9 % SODIUM CHLORIDE 30 UNIT/500 ML RTUINJ IV PRN (08:41)
[2019-11-08] MEDS ORDERED: PSEUDOEPHEDRINE HCL 30 MG TABLET PO PRN (08:41)
[2019-11-08] MEDS ORDERED: MAGNESIUM HYDROXIDE SUSP 30 ML UDCUP PO PRN (08:41)
[2019-11-08] MEDS ORDERED: MEASLES,MUMPS&RUBELLA VACC/PF 0.5 ML VIAL SUBCUT PRN (08:41)
[2019-11-08] MEDS ORDERED: BENZOCAINE/MENTHOL AEROSOL SPRAY 56 ML TOP PRN (08:41)
[2019-11-08] MEDS ORDERED: NA PHOS,M-B/NA PHOS,DI-BA (ADULT) 133 ML ENEMA PR PRN (08:41)
[2019-11-08] MEDS ORDERED: DIPHENHYDRAMINE HCL 25 MG CAPSULE PO PRN (08:41)
[2019-11-08 09:23] LABS: ABSOLUTE MONOCYTES (AUTO) 0.6 10^3/uL (0.1-1.4); ABSOLUTE NEUT (AUTO) 5.9 10^3/uL (1.7-8.2); BASOPHILS % (AUTO) 0.2 % (0-2); EOSINOPHILS % (AUTO) 0.6 % (0-6); HEMOGLOBIN 12.9 g/dL (12.0-15.5); LYMPHOCYTES % (AUTO) 13.2 % (13-45); MEAN CORPUSCULAR HEMOGLOBIN 26.6 pg (27.0-33.4); MEAN CORPUSCULAR HGB CONC 33.8 g/dL (32.0-36.0); MEAN CORPUSCULAR VOLUME 79 fl (80-97); MONOCYTES % (AUTO) 7.4 % (3-13); PLATELET COUNT 135 10^3/uL (150-450); RED BLOOD COUNT 4.84 10^6/uL (3.72-5.28); RED CELL DISTRIBUTION WIDTH 13.9 % (11.5-14.0); SEGMENTED NEUTROPHILS % (AUTO) 78.6 % (42-78); TOTAL CELLS COUNTED % (AUTO) 100 %; WHITE BLOOD COUNT 7.5 10^3/uL (4.0-10.5)
--- NOTE | 2019-11-08 09:38 | Warning Signs in Babies ---
VOD Warning Signs Datetime Report Generated by [facility]: 11/08/2019 09:38 VOD#608 -Warning Signs in Babies: Needs to be viewed. (11/02/2019 16:59:Tara Tang RN)
--- NOTE | 2019-11-08 10:12 | Delivery Summary ---
Del Sum A-C Datetime Report Generated by CPN: 11/08/2019 10:12 DELIVERY PERSONNEL DELIVERY PERSONNEL: [id number] Delivery Doctor:: Nghia Fernández MD Labor and Delivery Nurse:: Tara Tang RNbiology specimen technician Nurse:: Ana M Nevarez RN Receiving Manager/CASINO FLOOR PERSON: Светлана [place], ARRESTING GEAR OPERATOR MATERNAL INFORMATION Delivery Anesthesia: None Medications After Delivery: Pitocin 10 Units IM Estimated Blood Loss (ml): 250 Delivery QBL: 150 Maternal Complications: Precipitous Labor (<3hrs) LABOR SUMMARY EDC: 11/29/2019 00:00 No. Babies in Womb: 1 Attempted: No Labor Anesthesia: None LABOR INFORMATION Reason for Induction: Not Applicable Onset of Labor: 11/08/2019 06:00 Complete Dilatation: 11/08/2019 07:42 Oxytocin: N/A Group B Beta Strep: unknown Antibiotics # of Doses: 0 Steroids Given: None Reason Steroids Not Administered: Not Applicable MEMBRANES Membranes Rupture Method: Spontaneous Rupture of Membranes: 11/08/2019 07:30 Length of Rupture (hr): 0.75 Amniotic Fluid Color: Clear Amniotic Fluid Amount: Small Amniotic Fluid Odor: Normal STAGES OF LABOR Stage 1 hr: 1 Stage 1 min: 42 Stage 2 hr: 0 Stage 2 min: 33 Stage 3 hr: 0 Stage 3 min: 6 Total Time in Labor hr: 2 Total Time in Labor min: 21 VAGINAL DELIVERY Episiotomy: None Laceration #1: None Laceration Extension #1: N/A Laceration Repair: Not Applicable Sponge Count Correct: Yes; Vaginal Sweep Performed Sharps Count Correct: Yes CSECTION DELIVERY Primary Indication: N/A Secondary Indication: N/A CSection Incidence: N/A Labor: N/A Elective: N/A CSection Incision: N/A BABY A INFORMATION Delivery Date/Time: 11/08/2019 08:15 Method of Delivery: Vaginal Nurse Controlled Delivery: No Born in Route : No : N/A Forceps: N/A Vacuum Extraction: N/A Shoulder Dystocia : No PRESENTATION/POSITION BABY A Presentation: Cephalic Cephalic Presentation: Vertex Vertex Position: Left Occipital Anterior Breech Presentation: N/A PLACENTA INFORMATION BABY A Placenta Delivery Time : 11/08/2019 08:21 Placenta Method of Delivery: Spontaneous Placenta Status: Delivered SCORES BABY A Heart Rate 1 min: >100 bpm Resp Effort 1 min: Good Cry Reflex Irritability 1 min: Cough or Sneeze or Pulls Away Muscle Tone 1 min: Active Motion Color 1 min: Body [place], Extremities Blue Resuscitation Effort 1 min: Tactile Stimulation SCORE 1 MIN: 9 Heart Rate 5 min: >100 bpm Resp Effort 5 min: Good Cry Reflex Irritability 5 min: Cough or Sneeze or Pulls Away Muscle Tone 5 min: Active Motion Color 5 min: Body [place], Extremities Blue Resuscitation Effort 5 min: N/A SCORE 5 MIN: 9 INFANT INFORMATION BABY A Gestational Age at Delivery: 37.0 Gestational Status: Early Term- 37- 38.6 Weeks Infant Outcome : Liveborn Infant Condition : Stable Infant Sex: Male IDENTIFICATION BABY A Infant Verification Date/Time: 11/08/2019 08:39 ID Band Number: [id number] Mother's Name Verified: Yes Infant RN Verifying Infant: Thais Tang RN; T. Khalif, RN WEIGHT/LENGTH BABY A Birthweight (gm): 3120 Infant Weight (lb): 6 Infant Weight (oz): 14 Infant Length (in): 18.00 Infant Length (cm): 45.72 CORD INFORMATION BABY A No. Cord Vessels: 3 Nuchal Cord : Around Neck x1, Loose Cord Blood Taken: Yes-For Storage (Mom's Blood type +) Infant Suction: None ASSESSMENT BABY A Infant Complications: None Physical Findings at Delivery: Within Normal Limits Skin to Skin: Yes Skin to Skin Time (min): 60 Transferred To: Remains with Mother BABY B INFORMATION : N/A SIGNATURES Signature: with User ID: Luis Miguel
[2019-11-08] MEDS ORDERED: PRENATAL VITAMIN W DHA CAPSULE PO ONE (10:13)
[2019-11-08] MEDS ORDERED: ACETAMINOPHEN WITH CODEINE #3 TABLET ONE (10:14)
[2019-11-08] MEDS ORDERED: DOCUSATE SODIUM 100 MG CAPSULE ONE (10:14)
[2019-11-08] MEDS ORDERED: FAMOTIDINE 20 MG TABLET ONE (10:14)
[2019-11-08] MEDS ORDERED: SENNOSIDES/DOCUSATE 8.6-50 MG 1 EACH TABLET ONE ×2 (10:14→10:22)
[2019-11-08] MEDS ORDERED: FERROUS SULFATE 325 MG TABLET PO ONE (10:14)
[2019-11-08] MEDS: DOCUSATE SODIUM 100 MG CAPSULE PO SCH ×2 (10:16→17:17)
[2019-11-08] MEDS: FAMOTIDINE 20 MG TABLET PO SCH ×2 (10:16→21:31)
[2019-11-08] MEDS: SENNOSIDES/DOCUSATE 8.6-50 MG 1 EACH TABLET PO SCH (10:16)
[2019-11-08] MEDS: FERROUS SULFATE 325 MG TABLET PO SCH ×2 (10:16→17:17)
[2019-11-08] MEDS: PRENATAL VITAMIN W DHA CAPSULE PO SCH (10:17)
[2019-11-08] MEDS: LABETALOL HCL 200 MG TABLET PO SCH ×2 (10:18→21:30)
[2019-11-08] MEDS ORDERED: PENICILLIN G POTASSIUM 2,500,000 UNIT in DEXTROSE 5%-WATER 50 ML IV SCH (11:54)
[2019-11-08 12:07] LABS: APPEARANCE,URINE SLIGHTLY-CLOUDY; BILIRUBIN,URINE NEGATIVE (NEGATIVE); COLOR,URINE RED; GLUCOSE, URINE 150 mg/dL (NEGATIVE); KETONES,URINE TRACE mg/dL (NEGATIVE); LEUKOCYTE ESTERASE,URINE NEGATIVE (NEGATIVE); NITRITE,URINE NEGATIVE (NEGATIVE); PROTEIN,URINE 100 mg/dL (NEGATIVE); URINE SPECIFIC GRAVITY 1.012; UROBILINOGEN,URINE NEGATIVE mg/dL (<2.0)
[2019-11-08 12:34] LABS: URINE AMPHETAMINES SCREEN NEGATIVE; URINE BARBITURATES SCREEN NEGATIVE; URINE BENZODIAZEPINES SCREEN NEGATIVE; URINE COCAINE SCREEN NEGATIVE; URINE MARIJUANA (THC) SCREEN NEGATIVE; URINE METHADONE SCREEN NEGATIVE; URINE PHENCYCLIDINE SCREEN NEGATIVE
[2019-11-08] MEDS: IBUPROFEN 800 MG TABLET PO SCH ×2 (13:08→21:31)
[2019-11-09] MEDS: IBUPROFEN 800 MG TABLET PO SCH ×3 (05:56→21:35)
[2019-11-09] MEDS: FAMOTIDINE 20 MG TABLET PO SCH ×2 (09:22→21:36)
[2019-11-09] MEDS: SENNOSIDES/DOCUSATE 8.6-50 MG 1 EACH TABLET PO SCH (09:23)
[2019-11-09] MEDS: DOCUSATE SODIUM 100 MG CAPSULE PO SCH ×2 (09:23→17:39)
[2019-11-09] MEDS: PRENATAL VITAMIN W DHA CAPSULE PO SCH (09:23)
[2019-11-09] MEDS: FERROUS SULFATE 325 MG TABLET PO SCH ×2 (09:24→17:39)
[2019-11-09] MEDS: LABETALOL HCL 200 MG TABLET PO SCH ×2 (09:24→21:36)
[2019-11-09 09:38] LABS: ABSOLUTE EOSINOPHILS # (AUTO) 0.1 10^3/uL (0.0-0.6); ABSOLUTE LYMPHOCYTES (AUTO) 2.5 10^3/uL (0.5-4.7); ABSOLUTE MONOCYTES (AUTO) 0.6 10^3/uL (0.1-1.4); ABSOLUTE NEUT (AUTO) 5.7 10^3/uL (1.7-8.2); BASOPHILS % (AUTO) 0.2 % (0-2); EOSINOPHILS % (AUTO) 1.6 % (0-6); HEMATOCRIT 33.9 % (36.0-47.0); HEMOGLOBIN 11.5 g/dL (12.0-15.5); MEAN CORPUSCULAR HEMOGLOBIN 26.6 pg (27.0-33.4); MEAN CORPUSCULAR HGB CONC 33.9 g/dL (32.0-36.0); MEAN CORPUSCULAR VOLUME 79 fl (80-97); MONOCYTES % (AUTO) 6.6 % (3-13); PLATELET COUNT 145 10^3/uL (150-450); RED BLOOD COUNT 4.32 10^6/uL (3.72-5.28); RED CELL DISTRIBUTION WIDTH 13.9 % (11.5-14.0); SEGMENTED NEUTROPHILS % (AUTO) 63.6 % (42-78); TOTAL CELLS COUNTED % (AUTO) 100 %
--- NOTE | 2019-11-09 09:51 | PDOC PROGRESS REPORT ---
Subjective-OB Progress Note for:: 11/09/19 Subjective: Pt doing well, no concerns. She reports feeling tired from all night. Bleeding is light, voids w/o difficulty. Reg diet. Physical Exam (OB) Vital Signs: Temp Pulse Resp BP Pulse Ox 97.7 F 77 18 132/78 H 100 11/09/19 07:44 11/09/19 07:44 11/09/19 07:44 11/09/19 07:44 11/09/19 07:44 Intake & Output 11/08/19 11/09/19 11/10/19 06:59 06:59 06:59 Intake Total 500 Output Total 2 Balance 498 Weight 115.9 kg - PIH/Pre-Eclampsia DTR's: 2 + Clonus: Negative Headache: Absent Epigastric Pain: No Visual Changes: No - Lochia Lochia Amount: Scant < 10 ml Lochia Color: Rubra/Red - Abdomen Description: Soft Hernia Present: No Fundal Description: Firm, Midline Fundal Height: u/u - u/2 Objective-Diagnostic Laboratory: 11/09/19 09:15 11/08/19 11/08/19 11/09/19 07:36 08:57 09:15 WBC 9.0 RBC 4.32 Hgb 11.5 L Hct 33.9 L MCV 79 L MCH 26.6 L MCHC 33.9 RDW 13.9 Plt Count 145 L Seg Neutrophils % 63.6 Urine Color RED Urine Appearance SLIGHTLY-CLOUDY Urine pH 7.0 Ur Specific [place] 1.012 Urine Protein 100 H Urine Glucose (UA) 150 H Urine Ketones TRACE H Urine Blood MODERATE H Urine Nitrite NEGATIVE Ur Leukocyte Esterase NEGATIVE Blood Type B POSITIVE Antibody Screen NEGATIVE Assessment and Plan(PN) - Assessment and Plan (1) Gestational HTN Qualifiers: Trimester: third trimester Is this a current diagnosis for this admission?: Yes (2) Gestational diabetes Qualifiers: Gestational diabetes mellitus control: unspecified Trimester: third trimester Qualified Code(s): O24.419 - Gestational diabetes mellitus in , unspecified control Is this a current diagnosis for this admission?: Yes (3) Vaginal delivery Is this a current diagnosis for this admission?: Yes - Time Spent with Patient Time with patient: Less than 15 minutes Medications reviewed and adjusted accordingly: Yes - Disposition Anticipated Discharge: Home Within: within 24 hours
[2019-11-10] MEDS: IBUPROFEN 800 MG TABLET PO SCH ×3 (07:38→21:50)
[2019-11-10] MEDS: FERROUS SULFATE 325 MG TABLET PO SCH ×2 (09:32→17:42)
[2019-11-10] MEDS: SENNOSIDES/DOCUSATE 8.6-50 MG 1 EACH TABLET PO SCH (09:32)
[2019-11-10] MEDS: DOCUSATE SODIUM 100 MG CAPSULE PO SCH ×2 (09:32→17:41)
[2019-11-10] MEDS: PRENATAL VITAMIN W DHA CAPSULE PO SCH (09:32)
[2019-11-10] MEDS: LABETALOL HCL 200 MG TABLET PO SCH ×2 (09:32→21:50)
[2019-11-10] MEDS: FAMOTIDINE 20 MG TABLET PO SCH ×2 (09:32→21:50)
--- NOTE | 2019-11-10 11:00 | PDOC PROGRESS REPORT ---
Subjective-OB Progress Note for:: 11/10/19 Physical Exam (OB) Vital Signs: Temp Pulse Resp BP Pulse Ox 98.2 F 76 18 139/87 H 100 11/10/19 08:00 11/10/19 08:00 11/10/19 08:00 11/10/19 08:00 11/10/19 08:00 Intake & Output 11/09/19 11/10/19 11/11/19 06:59 06:59 06:59 Intake Total 500 600 Output Total 2 Balance 498 600 Weight 115.9 kg - PIH/Pre-Eclampsia DTR's: 2 + Clonus: Negative Headache: Absent Epigastric Pain: No Visual Changes: No - Lochia Lochia Amount: Scant < 10 ml Lochia Color: Rubra/Red - Abdomen Description: Soft Hernia Present: No Bowel Sounds: Normoactive Flatus Presence: Present Stool: No Fundal Description: Firm, Midline Fundal Height: u/u - u/2 Objective-Diagnostic Laboratory: 11/09/19 09:15 Assessment and Plan(PN) - Time Spent with Patient Medications reviewed and adjusted accordingly: Yes - Disposition Anticipated Discharge: Home
[2019-11-11] MEDS: IBUPROFEN 800 MG TABLET PO SCH ×2 (05:08→13:50)
--- NOTE | 2019-11-11 09:39 | PDOC DISCHARGE SUMMARY ---
Impression - Admit/DC Date/PCP Admission Date/Primary Care Provider: 11/08/19 07:48 BRANDT BAILEY MD Discharge Date: 11/11/19 - Discharge Diagnosis (1) Gestational HTN Is this a current diagnosis for this admission?: Yes (2) Gestational diabetes Is this a current diagnosis for this admission?: Yes (3) Vaginal delivery Is this a current diagnosis for this admission?: Yes - Additional Information Resuscitation Status: Full Code Discharge Diet: Regular Discharge Activity: Balance Activity w/Rest, Pelvic Rest Referrals: BRANDT BAILEY MD [Primary Care Provider] - Prescriptions: Ibuprofen [Motrin 800 mg Tablet] 800 mg PO Q8HP PRN #60 tablet PRN Reason: Home Medications: 95/Iron Fum/Folic/Dha [ + Dha Combo Pack] 1 tab PO DAILY Labetalol HCl [Normodyne 200 mg Tablet] 200 mg PO Q12 11/02/19 Ibuprofen [Motrin 800 mg Tablet] 800 mg PO Q8HP PRN #60 tablet 11/11/19 HPI Gestational Age: 37.0 Reason(s) for Admission: Onset of Labor Procedures: NST Intrapartum Procedure(s): Spontaneous Vaginal Delivery Results Laboratory Results: WBC 9.0 10^3/uL (4.0-10.5) 11/09/19 09:15 RBC 4.32 10^6/uL (3.72-5.28) 11/09/19 09:15 Hgb 11.5 g/dL (12.0-15.5) L 11/09/19 09:15 Hct 33.9 % (36.0-47.0) L 11/09/19 09:15 MCV 79 fl (80-97) L 11/09/19 09:15 MCH 26.6 pg (27.0-33.4) L 11/09/19 09:15 MCHC 33.9 g/dL (32.0-36.0) 11/09/19 09:15 RDW 13.9 % (11.5-14.0) 11/09/19 09:15 Plt Count 145 10^3/uL (150-450) L 11/09/19 09:15 Lymph % (Auto) 28.0 % (13-45) 11/09/19 09:15 [place] % (Auto) 6.6 % (3-13) 11/09/19 09:15 Eos % (Auto) 1.6 % (0-6) 11/09/19 09:15 Baso % (Auto) 0.2 % (0-2) 11/09/19 09:15 Absolute Neuts (auto) 5.7 10^3/uL (1.7-8.2) 11/09/19 09:15 Absolute Lymphs (auto) 2.5 10^3/uL (0.5-4.7) 11/09/19 09:15 Absolute Monos (auto) 0.6 10^3/uL (0.1-1.4) 11/09/19 09:15 Absolute Eos (auto) 0.1 10^3/uL (0.0-0.6) 11/09/19 09:15 Absolute Basos (auto) 0.0 10^3/uL (0.0-0.2) 11/09/19 09:15 Seg Neutrophils % 63.6 % (42-78) 11/09/19 09:15 Urine Color RED 11/08/19 07:36 Urine Appearance SLIGHTLY-CLOUDY 11/08/19 07:36 Urine pH 7.0 (5.0-9.0) 11/08/19 07:36 Ur Specific [place] 1.012 11/08/19 07:36 Urine Protein 100 mg/dL (NEGATIVE) H 11/08/19 07:36 Urine Glucose (UA) 150 mg/dL (NEGATIVE) H 11/08/19 07:36 Urine Ketones TRACE mg/dL (NEGATIVE) H 11/08/19 07:36 Urine Blood MODERATE (NEGATIVE) H 11/08/19 07:36 Urine Nitrite NEGATIVE (NEGATIVE) 11/08/19 07:36 Urine Bilirubin NEGATIVE (NEGATIVE) 11/08/19 07:36 Urine Urobilinogen NEGATIVE mg/dL (<2.0) 11/08/19 07:36 Ur Leukocyte Esterase NEGATIVE (NEGATIVE) 11/08/19 07:36 Urine Ascorbic Acid NEGATIVE (NEGATIVE) 11/08/19 07:36 Urine Opiates Screen NEGATIVE 11/08/19 07:36 Urine Methadone Screen NEGATIVE 11/08/19 07:36 Ur Barbiturates Screen NEGATIVE 11/08/19 07:36 Ur Phencyclidine Scrn NEGATIVE 11/08/19 07:36 Ur Amphetamines Screen NEGATIVE 11/08/19 07:36 U Benzodiazepines Scrn NEGATIVE 11/08/19 07:36 Urine Cocaine Screen NEGATIVE 11/08/19 07:36 U Marijuana (THC) Screen NEGATIVE 11/08/19 07:36 RPR NONREACTIVE (NONREACTIVE) 11/08/19 08:57 Chlamydia DNA (PCR) Cancelled 11/08/19 07:36 N.gonorrhoeae DNA (PCR) Cancelled 11/08/19 07:36 Blood Type B POSITIVE 11/08/19 08:57 Antibody Screen NEGATIVE 11/08/19 08:57 Plan Plan of Treatment: f/u at [facility] 1 wk PPCK Time Spent: Less than 30 Minutes
[2019-11-11] MEDS: DOCUSATE SODIUM 100 MG CAPSULE PO SCH (09:55)
[2019-11-11] MEDS: LABETALOL HCL 200 MG TABLET PO SCH (09:56)
[2019-11-11] MEDS: FAMOTIDINE 20 MG TABLET PO SCH (09:56)
[2019-11-11] MEDS: SENNOSIDES/DOCUSATE 8.6-50 MG 1 EACH TABLET PO SCH (09:57)
[2019-11-11] MEDS: FERROUS SULFATE 325 MG TABLET PO SCH (09:57)
[2019-11-11] MEDS: PRENATAL VITAMIN W DHA CAPSULE PO SCH (09:57)
[2019-11-11 11:46] VITALS: BP 142/77
== END 2019-11-11 15:28 | disposition home or self-care (01) | DRG 807 ==
LOC: LC 07:26 → LR 07:48 → 2S 10:27
PROVIDERS: ADMIT Obstetrics & Gynecology; ATTEND Obstetrics & Gynecology
PROC: 10E0XZZ Delivery of Products of Conception, External Approach (ICD-10-PCS; principal; 2019-11-08)
DX: O14.94 Unspecified pre-eclampsia, complicating childbirth (principal); Z37.0 Single live birth; O69.81X0 Labor and delivery complicated by cord around neck, without compression, not applicable or unspecified; O24.420 Gestational diabetes mellitus in childbirth, diet controlled; O13.4 Gestational [pregnancy-induced] hypertension without significant proteinuria, complicating childbirth; O62.3 Precipitate labor; Z3A.37 37 weeks gestation of pregnancy
CPT/HCPCS: 36415; 80307; 81005; 85025; 86592; 86850; 86900; 86901; J2590; J3490

== ENCOUNTER 2020-01-01 07:05 | Day surgery (SDC) | payer BC, MEDICAID ==
[~2020-01-01 07:05] MED LIST: LIDOCAINE 2% INJ (20 MG/ML) 20 ML MDV ONE
[2020-01-01 07:38] LABS: APPEARANCE,URINE SLIGHTLY-CLOUDY; BILIRUBIN,URINE NEGATIVE (NEGATIVE); COLOR,URINE YELLOW; GLUCOSE, URINE NEGATIVE (NEGATIVE); KETONES,URINE NEGATIVE (NEGATIVE); LEUKOCYTE ESTERASE,URINE MODERATE (NEGATIVE); NITRITE,URINE NEGATIVE (NEGATIVE); PROTEIN,URINE NEGATIVE (NEGATIVE); URINE SPECIFIC GRAVITY 1.018; UROBILINOGEN,URINE NEGATIVE mg/dL (<2.0)
[2020-01-01 08:00] LABS: HEMATOCRIT 39.5 % (36.0-47.0); HEMOGLOBIN 13.4 g/dL (12.0-15.5); MEAN CORPUSCULAR HEMOGLOBIN 26.8 pg (27.0-33.4); MEAN CORPUSCULAR HGB CONC 33.9 g/dL (32.0-36.0); MEAN CORPUSCULAR VOLUME 79 fl (80-97); PLATELET COUNT 211 10^3/uL (150-450); RED CELL DISTRIBUTION WIDTH 15.3 % (11.5-14.0); WHITE BLOOD COUNT 5.3 10^3/uL (4.0-10.5)
[2020-01-01] MEDS ORDERED: FENTANYL CITRATE INJ/PF 100 MCG/2 ML AMPUL ONE (08:50)
[2020-01-01] MEDS ORDERED: PROPOFOL INJ 200 MG/20 ML VIAL IV ONE (08:50)
[2020-01-01] MEDS ORDERED: MIDAZOLAM 2 MG/2 ML INJ ONE (08:50)
[2020-01-01] MEDS ORDERED: MORPHINE SULFATE 10 MG/ML INJ IV PRN (09:38)
[2020-01-01] MEDS ORDERED: PROMETHAZINE HCL INJ 25 MG/1 ML VIAL IV PRN (09:38)
[2020-01-01] MEDS ORDERED: FENTANYL CITRATE INJ/PF 100 MCG/2 ML AMPUL IV PRN ×3 (09:38)
[2020-01-01] MEDS ORDERED: MEPERIDINE HCL/PF INJ 25 MG/1 ML DISP.SYRIN IV PRN (09:38)
[2020-01-01] MEDS ORDERED: DIPHENHYDRAMINE HCL 50 MG/ML VIAL IV PRN (09:38)
[2020-01-01] MEDS ORDERED: ONDANSETRON HCL INJ/PF 4 MG/2 ML SDV IV PRN (09:38)
[2020-01-01] MEDS ORDERED: IBUPROFEN 800 MG TABLET PO PRN (10:13)
[2020-01-01] MEDS ORDERED: RINGERS SOLUTION,LACTATED 1,000 ML IV PRN (10:13)
[2020-01-01] MEDS ORDERED: OXYCODONE-ACETAMINOPHEN 5-325 MG TABLET PO PRN ×2 (10:13)
[2020-01-01] MEDS ORDERED: KETOROLAC TROMETHAMINE INJ/PF 30 MG/1 ML SDV IV PRN (10:13)
--- NOTE | 2020-01-01 10:17 | Operative Report ---
Operative Report DATE OF SURGERY: 01/01/20 PREOPERATIVE DIAGNOSIS: Patient desires a tubal ligation with cautery POSTOPERATIVE DIAGNOSIS: Same OPERATION: Laparoscopic bilateral tubal cautery SURGEON: BRANDT BAILEY ANESTHESIA: GA TISSUE REMOVED OR ALTERED: Fallopian tubes COMPLICATIONS: None ESTIMATED BLOOD LOSS: 10 cc INTRAOPERATIVE FINDINGS: Normal fallopian tubes and ovaries PROCEDURE: Patient was taken back to the OR and placed in supine position. General anesthesia was induced. She is placed on dorsolithotomy position using Cj stirrups. Her perineum and vagina and abdomen were prepared and draped in a sterile fashion. She had voided prior to the procedure did not need cathet erization. A sponge stick was placed in the vagina for manipulation of the uterus. An incision was made at the umbilicus and the natural umbilical defect was identified and dilated with Olga clamp. This allowed the placement of a blunt port. Laparoscopy confirmed appropriate placement. The abdomen was insufflated with CO2 gas. Each tube was identified and followed out to its fimbriated end. Each tube was then cauterized at its mid isthmic portion moving back toward the uterine cornu with 5 successive bites. Photos were taken. At the end of the case the gas was allowed to escape from the abdomen. The port and scope were removed at the same time. The fascia at the umbilicus was closed with a 2-0 Vicryl stitch and skin closed with a 4-0 undyed Vicryl stitch. The sponge stick was removed from the vagina.
--- NOTE | 2020-01-01 10:21 | Discharge Summary ---
Discharge Summary (SDC) - Discharge Final Diagnosis: Patient desires tubal ligation using cautery Date of Surgery: 01/01/20 Discharge Date: 01/01/20 Condition: Good Treatment or Instructions: Follow-up in 2 weeks Prescriptions: Oxycodone HCl/Acetaminophen [Percocet 5-325 mg Tablet] 1 tab PO Q4HP PRN 7 Days #28 tablet PRN Reason: Ibuprofen [Motrin 800 mg Tablet] 800 mg PO Q8H PRN #30 tablet PRN Reason: Referrals: MILAGROS SHAFFER NP [Primary Care Provider] - Discharge Diet: Regular Discharge Activity: Balance Activity w/Rest, Pelvic Rest, Slowly Increase Activity Report the Following to Your Physician Immediately: Nausea, Vomiting, Fever over 101 Degrees
[2020-01-01] MEDS: FENTANYL CITRATE INJ/PF 100 MCG/2 ML AMPUL ONE ×2 (10:22→10:30)
--- NOTE | 2020-01-01 10:22 | Discharge Summary ---
Discharge Summary (SDC) - Discharge Final Diagnosis: Encounter for tubal ligation Date of Surgery: 01/01/20 Condition: Good Treatment or Instructions: Follow-up in 2 weeks Prescriptions: Oxycodone HCl/Acetaminophen [Percocet 5-325 mg Tablet] 1 tab PO Q4HP PRN 7 Days #28 tablet PRN Reason: Ibuprofen [Motrin 800 mg Tablet] 800 mg PO Q8H PRN #30 tablet PRN Reason: Referrals: MILAGROS SHAFFER [employer] [Primary Care Provider] - Discharge Activity: Balance Activity w/Rest, Pelvic Rest, Slowly Increase Activity Report the Following to Your Physician Immediately: Nausea, Vomiting, Fever over 101 Degrees
[2020-01-01] MEDS ORDERED: OXYCODONE-ACETAMINOPHEN 5-325 MG TABLET ONE (11:03)
[2020-01-01 12:11] VITALS: BP 129/82
[2020-01-01] MEDS ORDERED: ONDANSETRON HCL INJ/PF 4 MG/2 ML SDV ONE (13:48)
[2020-01-01] MEDS ORDERED: ROCURONIUM BROMIDE INJ 50 MG/5 ML VIAL IV ONE ×2 (13:48→13:49)
[2020-01-01] MEDS ORDERED: SUCCINYLCHOLINE CHLORIDE INJ 200 MG/10 ML VIAL ONE ×2 (13:48→13:49)
[2020-01-01] MEDS ORDERED: DEXAMETHASONE SOD PHOSPHATE INJ 4 MG/1 ML VIAL ONE (13:48)
[2020-01-01] MEDS ORDERED: KETOROLAC TROMETHAMINE 60 MG/2 ML SDV ONE (13:48)
== END 2020-01-01 12:00 | disposition home or self-care (01) ==
LOC: OROUT 07:05
PROVIDERS: ATTEND Obstetrics & Gynecology
DX: Z30.2 Encounter for sterilization (principal); E66.9 Obesity, unspecified; Z79.899 Other long term (current) drug therapy; I10 Essential (primary) hypertension; Z03.818 Encounter for observation for suspected exposure to other biological agents ruled out
CPT/HCPCS: 36415; 85027; 87635; 81025; 81001; 00851; 58670; J2250; J3490 ×2; J1100; J1885; J3010; J0330; J2405; J2704; C9803; 851